=== PATIENT | female | born 1960 | race Caucasian/White ===

== ENCOUNTER 2016-12-26 06:31 | Day surgery (SDC) | payer BC ==
--- NOTE | ~2016-12-26 | EGD ---
EGD REPORT [facility] [address] [id number] NAME: SHANIKA JOVEL : [birth year] STATUS : REG [facility]#: [id number] AGE: 56 ADM/REG DATE : 12/26/16 MR#: [id number] REPORT SERV DATE: 12/26/16 DICTATED BY: APOLINAR HINDS DATE: 12/26/16 REPORT STATUS : Draft [facility] DATE: 12/26/16 Endoscopy Center Patient Name: Shanika Jovel Date of : 1960 Attending MD: APOLINAR HINDS, Procedure Date No Time: 12/26/2016 Procedure: Colonoscopy Indications: Screening for colorectal malignant neoplasm, This is the patient's first colonoscopy Referring MD: ALEXX NATION Medicines: Propofol per Anesthesia Complications: No immediate complications. Estimated blood loss: None. Procedure: Pre-Anesthesia Assessment: - ASA Grade Assessment: III - A patient with severe systemic disease. After I obtained informed consent, the scope was passed under direct vision. Throughout the procedure, the patient's blood pressure, pulse, and oxygen saturations were monitored continuously. The CF [id number] was introduced through the anus and advanced to the cecum, identified by appendiceal orifice and ileocecal valve. The colonoscopy was performed with ease. The patient tolerated the procedure well. The quality of the bowel preparation was adequate to identify polyps. Findings: The perianal and digital rectal examinations were normal. Three sessile polyps were found in the sigmoid colon. The polyps were 3 to 4 mm in size. These polyps were removed with a cold snare. Resection was complete, but the polyp tissue was only partially retrieved (2 of 3 retrieved). Estimated blood loss: none. Internal hemorrhoids were found during retroflexion and were Grade I (internal hemorrhoids that do not prolapse). Impression: - Three 3 to 4 mm polyps in the sigmoid colon. Complete resection. Partial retrieval. - Internal hemorrhoids. Recommendation: - Patient has a contact number available for emergencies. The signs and symptoms of potential delayed complications were discussed with the patient. Return to normal activities tomorrow. Written discharge instructions were provided to the patient. - Regular diet. - Continue present medications. EGD REPORT [address] [place]. [address] NAME: SHANIKA JOVEL : [birth year] STATUS : REG [facility] [place] PAT#: [id number] AGE: 56 ADM/REG DATE : 12/26/16 MR#: [id number] REPORT SERV DATE: 12/26/16 DICTATED BY: APOLINAR HINDS DATE: 12/26/16 REPORT STATUS : Draft TRANSCRIBED BY: [employer] DATE: 12/26/16 - Discharge patient to home (with escort). - Await pathology results. - Repeat colonoscopy in 5 years for surveillance. - Return to GI clinic in 4 weeks. Procedure Code(s): --- Professional --- 67152, Colonoscopy, flexible, proximal to splenic flexure; with removal of tumor(s), polyp(s), or other lesion(s) by snare technique Diagnosis Code(s): --- Professional --- D12.5, Benign neoplasm of sigmoid colon K64.0, First degree hemorrhoids Z12.11, Encounter for screening for malignant neoplasm of colon CPT copyright 2013 [employer]. All rights reserved. The codes documented in this report are preliminary and upon growth hacker review may be revised to meet current compliance requirements. APOLINAR HINDS, 12/26/2016 8:44 AM This report has been signed electronically. Number of Addenda: 0 Note Initiated On: 12/26/2016 8:00 AM Scope Withdrawal Time 0 hours 13 minutes 48 seconds [address] [id number]
[~2016-12-26 06:31] MED LIST: ASAB PO; AVALIDE1 TA1 PO; DIOVAN HC1 PO; LEVOTHYROXIN50 MCG PO; LIPITOR20 PO; PLAVIX PO; PRAVAC PO
== END 2016-12-26 23:59 | disposition home or self-care (01) ==
LOC: DMU 06:31
PROVIDERS: Internal Medicine Gastroenterology
PROC: 0DBN8ZZ Excision of Sigmoid Colon, Via Natural or Artificial Opening Endoscopic (ICD-10-PCS; principal; 2016-12-26 08:30)
DX: Z12.11 Encounter for screening for malignant neoplasm of colon (principal); K63.5 Polyp of colon; K64.0 First degree hemorrhoids; F17.210 Nicotine dependence, cigarettes, uncomplicated; I73.9 Peripheral vascular disease, unspecified; E66.9 Obesity, unspecified; E03.9 Hypothyroidism, unspecified; E78.00 Pure hypercholesterolemia, unspecified; I10 Essential (primary) hypertension; Z95.5 Presence of coronary angioplasty implant and graft; Z88.5 Allergy status to narcotic agent; Z98.891 History of uterine scar from previous surgery; Z78.0 Asymptomatic menopausal state; Z88.0 Allergy status to penicillin; Z91.040 Latex allergy status; Z79.82 Long term (current) use of aspirin; Z79.899 Other long term (current) drug therapy
CPT/HCPCS: 88305